=== PATIENT | female | born 1945 | race Caucasian/White ===

== ENCOUNTER 2017-07-31 09:56 | Outpatient (CLI) | payer MEDICARE, OTHER | END 2017-07-31 09:57 | disposition home or self-care (01) | LOC: BICCT 09:56 | PROVIDERS: ATTEND Family Medicine | DX: R41.0 Disorientation, unspecified (principal); R51 Headache; S09.90XA Unspecified injury of head, initial encounter | CPT/HCPCS: 70450 ==

== ENCOUNTER 2018-01-23 13:48 | Outpatient (CLI) | payer MEDICARE, OTHER | END 2018-01-23 13:49 | disposition home or self-care (01) | LOC: BICMAMMO 13:48 | PROVIDERS: ATTEND Family Medicine | DX: Z12.31 Encounter for screening mammogram for malignant neoplasm of breast (principal); R92.1 Mammographic calcification found on diagnostic imaging of breast | CPT/HCPCS: 77063; 77067 ==

== ENCOUNTER 2019-07-30 12:19 | Outpatient (CLI) | payer MEDICARE, OTHER ==
--- NOTE | 2019-07-30 14:53 | MRI ---
MR OF THE LEFT KNEE WITHOUT CONTRAST INDICATION: ACL sprain TECHNIQUE: Axial and coronal PD fat sat, sagittal T2 fat sat, sagittal PD turbo spin echo and T1 veda nal images were obtained of the left knee. COMPARISON: None. FINDINGS: Joint effusion: Small joint effusion Semimembranosus-medial gastrocnemius popliteal cyst: Small Mustafa's cyst Ligaments: The ACL, PCL, MCL and LCLC are intact. Extensor mechanism: Intact. Menisci: There is a horizontally oriented oblique tear involving the anterior horn and anterior junct ion of the lateral meniscus with a displaced meniscal flap overlying the anterior lateral meniscal body. The medial meniscus is intact. Articular cartilage: There is a diffuse [id number] chondrosis involving the femorotibial and pa tellofemoral compartments with small marginal osteophytes Osseous structures: Normal marrow signal. Popliteus and IT band: Normal. IMPRESSION: 1. Mild osteoarthrosis of the left knee. 2. Lateral meniscal tear.
== END 2019-07-30 12:20 | disposition home or self-care (01) ==
LOC: BICMRI 12:19
PROVIDERS: ATTEND Orthopaedic Surgery
DX: S83.512A Sprain of anterior cruciate ligament of left knee, initial encounter (principal); M17.12 Unilateral primary osteoarthritis, left knee; S83.282A Other tear of lateral meniscus, current injury, left knee, initial encounter

== ENCOUNTER 2020-04-20 10:04 | Outpatient (CLI) | payer MEDICARE, OTHER ==
[2020-04-20] MEDS ORDERED: Iopamidol-370 76% 500 ML 1 ML ONE (10:52)
--- NOTE | 2020-04-20 11:38 | CT ---
CT ABDOMEN AND PELVIS WITH CONTRAST: History Bloody stool. COMPARISON: Reference is made to a dissection protocol CT July 09, 2016. FINDINGS: Lung bases are clear. Peripherally calcified breast implants. No pericardial effusion. Liver, sple en, and gallbladder are unremarkable. No significant growth of the 1.8 cm hypodensity of the pancrea tic body/head junction. Adrenal glands are unremarkable. No hydronephrosis. Nonobstructing 2 small calculi within the left infrarenal collecting system measuring 3 and 2 mm. No hydroureteral nephrosis. No right-sided renal calculus is appreciated. Small hypodensity interpolar right kidney too small to fully characterize, although likely a cyst. Moderate diverticular disease of sigmoid colon without active current inflammation. No abnormal wall thickening of the colon. The appendix is visualized and is normal and extends into the deep pelvis. No dilated loops of large or small bowel. No retroperitoneal periaortic adenopathy. Mild levoscoliosis of the lumbar spine. IMPRESSION: 1. No acute inflammatory process in the abdomen or pelvis. 2. Hypodensity of the pancreas head/uncinate process is similar without significant growth. Followu p pancreatic protocol MRI in 6 months time is recommended. 3. Mild diverticular disease of sigmoid colon without active current inflammation. POS: [facility]
== END 2020-04-20 10:05 | disposition home or self-care (01) ==
LOC: BICCT 10:04
PROVIDERS: ATTEND Family Medicine
DX: R10.13 Epigastric pain (principal); K86.89 Other specified diseases of pancreas; K57.30 Diverticulosis of large intestine without perforation or abscess without bleeding
CPT/HCPCS: 74177; Q9967

== ENCOUNTER 2021-11-05 08:53 | Outpatient (CLI) | payer MEDICARE, OTHER | END 2021-11-05 08:54 | disposition home or self-care (01) | LOC: BICMAMMO 08:53 | PROVIDERS: ATTEND Family Medicine | DX: Z12.31 Encounter for screening mammogram for malignant neoplasm of breast (principal); Z98.82 Breast implant status | CPT/HCPCS: 77063; 77067 ==

== ENCOUNTER 2023-01-06 12:33 | Outpatient (CLI) | payer MEDICARE, OTHER | END 2023-01-06 12:34 | disposition home or self-care (01) | LOC: BICMAMMO 12:33 | PROVIDERS: ATTEND Family Medicine | DX: Z12.31 Encounter for screening mammogram for malignant neoplasm of breast (principal); Z98.82 Breast implant status | CPT/HCPCS: 77063; 77067 ==